=== PATIENT | male | born 1995 | race Caucasian/White ===

== ENCOUNTER 2020-03-25 16:00 | Emergency (ER) | payer SELFPAY ==
[~2020-03-25] VITALS: Ht 182.9 cm; Wt 104.5 kg
[2020-03-25 16:05] VITALS: BP 136/87; Ht 182.9 cm; Wt 104.5 kg
[2020-03-25] MEDS ORDERED: ULTRAM50 MG PO (17:38)
== END 2020-03-25 18:37 | disposition home or self-care (01) ==
LOC: D.ER 16:00
DX: K02.9 Dental caries, unspecified (principal); S02.5XXA Fracture of tooth (traumatic), initial encounter for closed fracture; K08.89 Other specified disorders of teeth and supporting structures

== ENCOUNTER 2020-04-08 20:26 | Emergency (ER) | payer MEDICAID ==
[~2020-04-08] VITALS: Ht 182.9 cm; Wt 95.5 kg
[~2020-04-08 20:26] MED LIST: ULTRAM50 MG PO
[2020-04-08 20:55] VITALS: Ht 182.9 cm; Wt 95.5 kg
[2020-04-08] MEDS ORDERED: DICLOFENAC SODI50 MG PO (22:37)
[2020-04-08 22:48] VITALS: BP 132/89
[2020-04-10] MEDS ORDERED: NORCO 7.5-3251 EACH PO (15:43)
== END 2020-04-08 22:48 | disposition home or self-care (01) ==
LOC: D.ER 20:26
DX: S62.002A Unspecified fracture of navicular [scaphoid] bone of left wrist, initial encounter for closed fracture (principal); S52.122A Displaced fracture of head of left radius, initial encounter for closed fracture; V00.138A Other skateboard accident, initial encounter

== ENCOUNTER 2020-04-11 08:14 | Day surgery (SDC) | payer MEDICAID ==
[~2020-04-11] VITALS: Ht 182.9 cm; Wt 95.3 kg
[~2020-04-11 08:14] MED LIST changes: +DICLOFENAC SODI50 MG PO; +NORCO 7.5-3251 EACH PO
[2020-04-11 08:51] VITALS: Ht 182.9 cm; Wt 95.3 kg
[2020-04-11 09:48] LABS: ALBUMIN 3.9 g/dL (3.4-5.0); ALKALINE PHOSPHATASE 79 U/L (30-120); ALT (SGPT) 48 U/L (10-68); BILIRUBIN - TOTAL 0.31 mg/dL (0.2-1.3); CALC OSMOLALITY 280 mosm/kg (275-300); CALCIUM 8.9 mg/dL (8.5-10.1); CARBON DIOXIDE 30.3 mmol/L (21.0-32.0); CHLORIDE - SERUM 104 mmol/L (98-107); CREATININE - SERUM 0.9 mg/dL (0.6-1.3); GLUCOSE 109 mg/dL (74-106); POTASSIUM - SERUM 4.5 mmol/L (3.5-5.1); SODIUM 141 mmol/L (136-145); UREA NITROGEN 9 mg/dL (7-18); eGFR NON AFRICAN AMERICAN > 90 mL/min (90-120)
[2020-04-11] MEDS ORDERED: HYDROCODON-ACE1 EA10 PO (11:54)
--- NOTE | 2020-04-11 15:35 | NUR ---
1350 PT CONTINUES TO RUN A HIGH BLOOD PRESSURE. IS MORE AWAKE AND STATES HIS PAIN LEVEL IS AN 8 OUT OF 10. MEDICATING WITH NORCO. 1440 PT HAS BEEN LYING ON RIGHT SIDE SLEEPING. AWAKENS EASILY. STATES HIS PAIN LEVEL HAS GONE DOWN TO A 1 OUT OF 10. B/P STILL ELEVATED EVEN AFTER PAIN RELIEF. 1445 DR BATES NOTIFIED OF POST OP BP READINGS. DR BATES RECOMMENDS PT MONITOR HIS BP AT HOME ( STATES SHE HAS ACCESS TO A BP MACHINE) AND IF IT CONTINUES TO STAY ELEVATED,THAT HE NEEDS TO F/U WITH PCP 1452 PT AND HIS INFORMED OF DR BATES'S RECOMMENDATION OF BP WORKUP WITH PCP IF HIS BP DOES NOT GO DOWN TO A MORE NORMAL RANGE FOR HIM (118/62 PREOPERATIVELY) BOTH STATE THAT THEY WILL MONITOR HIS BP. PT C/O LEFT EYE FEELING SCRATCHY AND ASKING IF SOMETHING WAS IN HIS EYE. LEFT EYE LOOKS RED AND IRRITATED. 1455 DR BATES CALLED AND NOTIFIED OF PT'S C/O LEFT EYE PAIN. 1515 DR BATES AT BEDSIDE TO EVALUATE EYE. TETRACAINE EYE GTTS (2) INSTILLED IN LEFT EYE BY DR BATES AND LEFT EYE COVERED WITH AN EYE PATCH. DR BATES TALKED TO PT AND HIS ABOUT HOW TO CARE FOR THIS EYE. INSTRUCTIONS ADDED TO DISCHARGE SHEET. PT STATES HIS EYE FELT MUCH BETTER AFTER TETRACAINE.
--- NOTE | 2020-04-11 15:44 | NUR ---
1442 IV DC'D. CATHETER TIP INTACT. NO BLEEDING AT SITE. BANDAID APPLIED.
--- NOTE | 2020-04-16 16:13 | OP ---
PATIENT NAME: LYDIA LARES MEDICAL RECORD: [id number] :89 LOCATION:[facility] ADMISSION DATE: SURGEON: ELLEN CLEMENTS MD DATE OF OPERATION: 04/11/2020 PREOPERATIVE DIAGNOSES: 1. Scaphoid fracture of the left upper extremity. 2. Radial head fracture of the left upper extremity. POSTOPERATIVE DIAGNOSES: 1. Scaphoid fracture of the left upper extremity. 2. Radial head fracture of the left upper extremity. PROCEDURE: 1. Open reduction internal fixation of left scaphoid fracture. 2. Radiographic evaluation of the radial head fracture under fluoroscopy. SURGEON: Ellen Clements MD [employer]: SAMANTA Elder INTRAOPERATIVE COMPLICATIONS: None. SUMMARY OF PATHOLOGIC FINDINGS: Consistent with the patient's radiographs, the patient had a radial head fracture, minimally displaced. Under fluoroscopy, it was very stable with pronation and supination elbow flexion and extension. Furthermore, the patient did have a scaphoid fracture as seen on previous radiographs. It was reduced nicely using the Jeffrey-Whipple cannulated style screw from [employer]. OPERATIVE SUMMARY IN DETAIL: After obtaining the appropriate preoperative orthopedic surgery consent as well as anesthetic consultation, evaluation and clearance, the patient was brought to the operating room and placed on the operating table in supine position. After adequate general laryngeal mask airway was administered, tourniquet was placed about the proximal aspect of the left upper extremity. Left upper extremity was then prepped and draped in routine sterile fashion. The arm was elevated and exsanguinated, tourniquet inflated to 250 mmHg. At this point, appropriate timeout was taken and agreed upon by all given the patient's unique identifiers. Fluoroscopy was brought in, and under fluoroscopy after a small incision was made about the proximal pole of the scaphoid, guidewire for 3.5 compression screw was placed into the scaphoid across the fracture into the distal pole of the scaphoid. After this was evaluated in several planes, appropriate measurements were taken and then a size 18 x 3.5 cannulated Jeffrey-Whipple style screw was placed and this resulted in anatomic scientologist with good compression of the fracture. At this point, the small incision was closed with 4-0 Prolene. Attention was then turned to the radial head. Fluoroscopy was brought in and under fluoroscopic evaluation in realtime the radial head stayed stable in pronation and supination as well as elbow flexion and extension. No intervention is thought to be needed at this time as this will likely heal without operative intervention. At this point, sterile dressings were applied. A thumb spica splint was applied. The patient was placed in a sling. He was awakened, LMA was removed. He was taken to recovery room in stable condition. All final needle and sponge counts were correct. TRANSINT:[id number] Voice Confirmation ID: [id number] DOCUMENT ID: [id number] OPERATIVE REPORT [id number] LYDIA LARES MD, ELLEN CABALLERO at 1613 CC: [id number] DICTATION DATE: 04/15/20 1034 INTERPRETIVE PROGRAM COORDINATOR: 04/15/20 2205 [facility] 04/11/[address] [id number]
== END 2020-04-11 15:27 | disposition home or self-care (01) ==
LOC: D.OPS 08:14 → D.PAN 10:45 → D.OPS 10:45 → D.PAN 11:15 → D.OPS 12:30 → D.PAN 12:30 → D.OPS 15:27
PROVIDERS: Anesthesiology; ATTEND Orthopaedic Surgery
DX: S62.002A Unspecified fracture of navicular [scaphoid] bone of left wrist, initial encounter for closed fracture (principal); S52.122A Displaced fracture of head of left radius, initial encounter for closed fracture; X58.XXXA Exposure to other specified factors, initial encounter